=== PATIENT | male | born 1995 | race Caucasian/White ===

== ENCOUNTER 2018-10-05 10:03 | Emergency (ER) | payer OTHER ==
[~2018-10-05] VITALS: Ht 190.5 cm; Wt 99.8 kg
[~2018-10-05 10:03] MED LIST: ANTIBIOTICS; FLEXERIL PO; HYDROCODONE-APA1 TA1 PO; NORCO 5-325 TA1 EACH PO
[2018-10-05 12:26] VITALS: BP 143/77
[2018-10-05] MEDS ORDERED: CYCLOBENZAPRINE5 MG PO (12:37)
[2018-10-05] MEDS ORDERED: MOBIC15 MG PO (12:37)
== END 2018-10-05 12:45 | disposition home or self-care (01) ==
LOC: ER 10:03
DX: R51 Headache (principal); M54.2 Cervicalgia; M25.512 Pain in left shoulder; F31.9 Bipolar disorder, unspecified; F90.9 Attention-deficit hyperactivity disorder, unspecified type; V49.40XA Driver injured in collision with unspecified motor vehicles in traffic accident, initial encounter; Y92.410 Unspecified street and highway as the place of occurrence of the external cause; Y93.89 Activity, other specified; Y99.8 Other external cause status